=== PATIENT | female | born 1965 | race Two or more races ===

== ENCOUNTER 2018-03-07 06:47 | Day surgery (SDC) | payer BC ==
[~2018-03-07 06:47] MED LIST: Lactated Ringers 1,000 ML IV SCH; Lidocaine 1%/Sod Bicarbonate in NS 8.4% 1 ML Syringe IDERM PRN; Sodium Chloride 0.9% 10 ML Syringe FLUSH PRN
[2018-03-07] MEDS ORDERED: Midazolam 1 MG/ML 2 ML SDV ONE (06:57)
[2018-03-07] MEDS ORDERED: Propofol 200 MG/20 ML SDV ONE ×2 (06:57→08:35)
--- NOTE | 2018-03-07 07:08 | PCM.PREANE ---
Preanesthetic Assessment - Anesthesia/Transfusion/Family Hx Anesthesia History: Prior Anesthesia Without Reaction Family History of Anesthesia Reaction: No - Review of Systems General: No Symptoms, Other (obese, BMI 44) Pulmonary: No Symptoms, Other (had partial lower lobectomy 3 years ago, denies any breathing issues) Cardiovascular: No Symptoms Gastrointestinal: No Symptoms Neurological: No Symptoms Other: Reports: None - Physical Assessment NPO Status Date: 03/06/18 NPO Status Time: 21:00 Pulse: 87 O2 Sat by Pulse Oximetry: 97 Respiratory Rate: 16 Blood Pressure: 161/76 Weight: 110 kg ASA Class: 2 Mental Status: Alert & Oriented x3 Airway Class: Mallampati = 2 Dentition: Reports: Normal Dentition Thyro-Mental Finger Breadths: 3 Mouth Opening Finger Breadths: 3 ROM/Head Extension: Full Lungs: Clear to Auscultation, Normal Respiratory Effort Cardiovascular: Regular Rate, Regular Rhythm - Allergies Allergies/Adverse Reactions: Allergies Allergy/AdvReac Type Severity Reaction Status Date / Time No Known Allergies Allergy Verified 02/24/15 13:14 - Blood Blood Available: No Product(s) Available: None - Anesthesia Plan Pre-Op Medication Ordered: None - Acknowledgements Anesthesia Type Planned: MAC Pt an Appropriate Candidate for the Planned Anesthesia: Yes Alternatives and Risks of Anesthesia Discussed w Pt/Guardian: Yes Pt/Guardian Understands and Agrees with Anesthesia Plan: Yes PreAnesthesia Questionnaire HEENT History: Reports: Impaired Vision, Other (See Below) Other HEENT History: nasal sore, wears glasses Cardiovascular History: Reports: None Other Respiratory History: Left lung nodule from metastatic cancer Other OB/BYN History: Leiomyosarcoma of uterus Musculoskeletal History: Reports: Fibromyalgia, Other (See Below) Other Musculoskeletal History: polyarthralgia, shoulder impingment, supraspinatus tendinitis, trapezius muscle spasm, hip pain, knee pain Neurological History: Reports: None Psychiatric History: Reports: Other (See Below) Other Psychiatric History: fatigue Endocrine/Metabolic History: Reports: Obesity/BMI 30+ Hematologic History: Reports: None Immunologic History: Reports: None Oncologic (Cancer) History: Reports: None Dermatologic History: Reports: None - Past Surgical History Head Surgeries/Procedures: Reports: None HEENT Surgical History: Reports: None Cardiovascular Surgical History: Reports: None Other Respiratory Surgeries/Procedures: small protion of left lung removed due to cancer (October 2014) GI Surgical History: Reports: Bariatric Procedure, Cholecystectomy, Colonoscopy Female Surgical History: Reports: Section, Hysterectomy Other Female Surgeries/Procedures: Leiomyosarcoma---soft tissue cancer of uterus Male Surgical History: Reports: None Endocrine Surgical History: Reports: None Neurological Surgical History: Reports: None Oncologic Surgical History: Reports: None Dermatological Surgical History: Reports: None - SUBSTANCE USE Smoking Status *Q: Never Smoker Recreational Drug Use History: No - HOME MEDS Home Medications: Home Meds Acetaminophen 325 - 650 mg PO Q6H PRN 12/26/14 [History] Multivitamin [Daily Vitamin] 1 each PO DAILY 12/26/14 [History] Omeprazole [Prilosec] 20 mg PO DAILY 12/26/14 [History] Venlafaxine HCl [Venlafaxine ER] 37.5 mg PO DAILY 12/26/14 [History] Cyclobenzaprine HCl 5 - 10 mg PO BEDTIME PRN 03/06/18 [History] Diclofenac Sodium 1 dose TOP BID PRN 03/06/18 [History] - CURRENT (IN HOUSE) MEDS Current Meds: Current Medications Lactated Ringer's (Ringers, Lactated) 1,000 mls @ 125 mls/hr IV ASDIRECTED ISAIAH Stop: 03/07/18 23:00 Lidocaine/Sodium Bicarbonate (Buffered Lidocaine 1% In Ns 8.4%) 0.25 ml IDERM ONETIME PRN PRN Reason: Prior to IV Start Stop: 03/07/18 18:00 Sodium Chloride (Saline Flush) 10 ml FLUSH ASDIRECTED PRN PRN Reason: Keep Vein Open Stop: 03/07/18 18:00 Discontinued Medications Midazolam HCl (Versed 1 Mg/Ml) Confirm Administered Dose 2 mg .ROUTE .STK-MED ONE Stop: 03/07/18 06:58 Propofol (Diprivan 20 Ml) Confirm Administered Dose 400 mg .ROUTE .STK-MED ONE Stop: 03/07/18 06:58
--- NOTE | 2018-03-07 07:38 | PCM.HP ---
H&P History of Present Illness - General Date of Service: 03/07/18 Admit Problem/Dx: Family history of colon cancer in mother requiring screening colonoscopy Source of Information: Patient - History of Present Illness Initial Comments - Free Text/Narative: 52 year old female here for for colon cancer screening due to family history of colon cancer in her mother. Patient's last colonoscopy was 12 years ago. She has had no blood in stool, no bowel habit changes. She has a history of metastatic leiomyosarcoma s/p resection. Abdomen Pain Score (Numeric/FACES): 0 - Related Data Allergies/Adverse Reactions: Allergies Allergy/AdvReac Type Severity Reaction Status Date / Time No Known Allergies Allergy Verified 02/24/15 13:14 Home Medications: Home Meds Acetaminophen 325 - 650 mg PO Q6H PRN 12/26/14 [History] Multivitamin [Daily Vitamin] 1 each PO DAILY 12/26/14 [History] Omeprazole [Prilosec] 20 mg PO DAILY 12/26/14 [History] Venlafaxine HCl [Venlafaxine ER] 37.5 mg PO DAILY 12/26/14 [History] Cyclobenzaprine HCl 5 - 10 mg PO BEDTIME PRN 03/06/18 [History] Diclofenac Sodium 1 dose TOP BID PRN 03/06/18 [History] Past Medical History HEENT History: Reports: Impaired Vision, Other (See Below) Other HEENT History: nasal sore, wears glasses Cardiovascular History: Reports: None Other Respiratory History: Left lung nodule from metastatic cancer Other OB/BYN History: Leiomyosarcoma of uterus Musculoskeletal History: Reports: Fibromyalgia, Other (See Below) Other Musculoskeletal History: polyarthralgia, shoulder impingment, supraspinatus tendinitis, trapezius muscle spasm, hip pain, knee pain Neurological History: Reports: None Psychiatric History: Reports: Other (See Below) Other Psychiatric History: fatigue Endocrine/Metabolic History: Reports: Obesity/BMI 30+ Hematologic History: Reports: None Immunologic History: Reports: None Oncologic (Cancer) History: Reports: None Dermatologic History: Reports: None - Past Surgical History Head Surgeries/Procedures: Reports: None HEENT Surgical History: Reports: None Cardiovascular Surgical History: Reports: None Other Respiratory Surgeries/Procedures: small protion of left lung removed due to cancer (October 2014) GI Surgical History: Reports: Bariatric Procedure, Cholecystectomy, Colonoscopy Female Surgical History: Reports: Section, Hysterectomy Other Female Surgeries/Procedures: Leiomyosarcoma---soft tissue cancer of uterus Male Surgical History: Reports: None Endocrine Surgical History: Reports: None Neurological Surgical History: Reports: None Oncologic Surgical History: Reports: None Dermatological Surgical History: Reports: None Social & Family History - Tobacco Use Smoking Status *Q: Never Smoker - Caffeine Use Caffeine Use: Reports: Coffee, Soda - Recreational Drug Use Recreational Drug Use: No Drug Use in Last 12 Months: No H&P Review of Systems - Review of Systems: Review Of Systems: See Below General: Reports: No Symptoms Pulmonary: Reports: No Symptoms Cardiovascular: Reports: No Symptoms Gastrointestinal: Reports: No Symptoms Exam - Exam Exam: See Below - Vital Signs Vital Signs: Last Vital Signs Temp 36.5 C 03/07/18 07:00 Pulse 87 03/07/18 07:14 Resp 16 03/07/18 07:14 BP 161/76 H 03/07/18 07:14 Pulse Ox 97 03/07/18 07:14 Weight: 110 kg - Exam General: Alert, Oriented Lungs: Clear to Auscultation, Normal Respiratory Effort Cardiovascular: Regular Rate, Regular Rhythm GI/Abdominal Exam: Normal Bowel Sounds, Soft, Non-Tender - Problem List (1) Family history of colon cancer requiring screening colonoscopy SNOMED Code(s): 491509521 ICD Code: Z80.0 - FAMILY HISTORY OF MALIGNANT NEOPLASM OF DIGESTIVE ORGANS Status: Acute Current Visit: Yes Problem List Initiated/Reviewed/Updated: Yes Orders Last 24hrs: Active Orders 24 hr Category Date Time Status Peripheral IV Care [RC] . DIRECTED Care 03/07/18 00:01 Active Verify Patient Consent Obtain [RC] ASDIRECTED Care 03/07/18 00:01 Active Lactated Ringers [Ringers, Lactated] 1,000 ml Med 03/07/18 00:01 Active IV ASDIRECTED Lidocaine 1%/Sod Bicarbonate [Buffered Lidocaine 1% in Med 03/07/18 00:01 Active NS 8.4%] 0.25 ml IDERM ONETIME PRN Sodium Chloride 0.9% [Saline Flush] Med 03/07/18 00:01 Active 10 ml FLUSH ASDIRECTED PRN Medication Administration Instruction [OM.PC] Routine Oth 03/07/18 00:01 Ordered Peripheral IV Insertion Adult [OM.PC] Routine Oth 03/07/18 00:01 Ordered Medication Orders Lactated Ringer's (Ringers, Lactated) 1,000 mls @ 125 mls/hr IV ASDIRECTED ISIAAH Stop: 03/07/18 23:00 Last Admin: 03/07/18 07:10 Dose: 125 mls/hr Lidocaine/Sodium Bicarbonate (Buffered Lidocaine 1% In Ns 8.4%) 0.25 ml IDERM ONETIME PRN PRN Reason: Prior to IV Start Stop: 03/07/18 18:00 Last Admin: 03/07/18 07:10 Dose: 0.25 ml Sodium Chloride (Saline Flush) 10 ml FLUSH ASDIRECTED PRN PRN Reason: Keep Vein Open Stop: 03/07/18 18:00 Assessment/Plan Comment:: Benefits/risks of colonoscopy discussed, recommend proceed with high risk screening colonoscopy.
--- NOTE | 2018-03-07 08:03 | PCM.OPNOTE ---
- General Post-Op/Procedure Note Date of Surgery/Procedure: 03/07/18 Operative Procedure(s): High risk screening colonoscopy Findings: Normal colonoscopy Pre Op Diagnosis: Family history of colon cancer in mother requiring screening colonoscopy Post-Op Diagnosis: Normal colonoscopy Anesthesia Technique: MAC Primary Surgeon: Howard Dominguez EBL in mLs: 0 Complications: None Condition: Good Free Text/Narrative:: After the patient gave verbal and written consent she was placed on blood pressure and pulse ox monitoring. She was given iv sedation which she tolerated well. The olympus colonoscope wsa inserted per rectum and advanced to the cecum without difficulty. THe ileocecal valve and appendiceal orfice were imaged documenting cecal intubation. The ileocecal valve and appendiceal orfice were imaged documenting cecal intubation. The scope was slowly withdrawn. The prep was excellent, the views were excellent. The scope was then retroflexed in the rectum and the details are above. Next colonoscopy recommended for screening in 5 years.
--- NOTE | 2018-03-07 08:04 | PCM48HPAN ---
Post Anesthesia Note - EVALUATION WITHIN 48HRS OF ANESTHETIC Vital Signs in Normal Range: Yes Patient Participated in Evaluation: Yes Respiratory Function Stable: Yes Airway Patent: Yes Cardiovascular Function Stable: Yes Hydration Status Stable: Yes Pain Control Satisfactory: Yes Nausea and Vomiting Control Satisfactory: Yes Mental Status Recovered: Yes Pulse Rate: 71 SaO2: 98 Resp Rate: 16 Temperature: 36 C Blood Pressure: 113/67
[2018-03-07 08:05] VITALS: BP 113/67
== END 2018-03-07 08:33 | disposition home or self-care (01) ==
LOC: JD.SDS 06:47
PROVIDERS: ATTEND Family Medicine
DX: Z12.11 Encounter for screening for malignant neoplasm of colon (principal); M79.7 Fibromyalgia; E66.9 Obesity, unspecified; Z68.41 Body mass index [BMI] 40.0-44.9, adult; Z79.899 Other long term (current) drug therapy; Z80.0 Family history of malignant neoplasm of digestive organs
CPT/HCPCS: 45378; J2250; J2704; J7120

== ENCOUNTER 2018-08-13 10:02 | Day surgery (SDC) | payer BC ==
[~2018-08-13 10:02] MED LIST changes: +EPINEPHrine 1 MG/ML 30 ML MDV SCH; +EPINEPHrine 1 MG/ML SDV ONE; +Ketorolac 30 MG/ML SDV ONE; +Lidocaine 1% 4 ML ONE; +Midazolam 1 MG/ML 2 ML SDV ONE; +Ondansetron 4 MG/2 ML SDV ONE; +Propofol 200 MG/20 ML SDV ONE; +Ropivacaine 0.5% 5 MG/ML 30 ML SDV ONE; +ceFAZolin 1 GM Vial ONE; +fentaNYL 100 MCG/2 ML SDV ONE; +fentaNYL 250 MCG/5 ML SDV ONE
--- NOTE | 2018-08-13 11:06 | PCM.PREANE ---
Preanesthetic Assessment - Anesthesia/Transfusion/Family Hx Anesthesia History: Prior Anesthesia Without Reaction Family History of Anesthesia Reaction: No Transfusion History: No Prior Transfusion(s) - Review of Systems General: No Symptoms Pulmonary: No Symptoms, Other (denies any issues) Cardiovascular: No Symptoms, Other (EKG, SR @71) Gastrointestinal: No Symptoms, Other (denies any issues) Neurological: No Symptoms Other: Reports: None - Physical Assessment NPO Status Date: 08/12/18 NPO Status Time: 21:30 Pulse: 77 O2 Sat by Pulse Oximetry: 97 Respiratory Rate: 16 Blood Pressure: 148/79 Vital Signs: Last Vital Signs Temp 36.5 C 08/13/18 10:10 Pulse 77 08/13/18 10:10 Resp 16 08/13/18 10:10 BP 148/79 H 08/13/18 10:10 Pulse Ox 97 08/13/18 10:10 Height: 1.6 m Weight: 106.141 kg ASA Class: 3 Mental Status: Alert & Oriented x3 Airway Class: Mallampati = 2 Dentition: Reports: Normal Dentition Thyro-Mental Finger Breadths: 3 Mouth Opening Finger Breadths: 3 ROM/Head Extension: Full Lungs: Clear to Auscultation, Normal Respiratory Effort Cardiovascular: Regular Rate, Regular Rhythm - Lab Values: Laboratory Last Values MRSA (PCR) Negative 08/12/18 10:40 - Allergies Allergies/Adverse Reactions: Allergies Allergy/AdvReac Type Severity Reaction Status Date / Time adhesive Allergy Rash Verified 08/12/18 12:22 amoxicillin [From Augmentin] AdvReac Nausea and Verified 08/12/18 12:57 Vomiting clavulanic acid AdvReac Nausea and Verified 08/12/18 12:57 [From Augmentin] Vomiting - Blood Blood Available: No Product(s) Available: None - Acknowledgements Anesthesia Type Planned: General Anesthesia Pt an Appropriate Candidate for the Planned Anesthesia: Yes Alternatives and Risks of Anesthesia Discussed w Pt/Guardian: Yes Pt/Guardian Understands and Agrees with Anesthesia Plan: Yes PreAnesthesia Questionnaire HEENT History: Reports: Impaired Vision, Other (See Below) Other HEENT History: nasal sore, wears glasses, post nasal drip Cardiovascular History: Reports: None Other Respiratory History: Left lung nodule from metastatic cancer Gastrointestinal History: Reports: GERD Genitourinary History: Reports: None Other OB/BYN History: Leiomyosarcoma of uterus Musculoskeletal History: Reports: Fibromyalgia, Other (See Below) Other Musculoskeletal History: polyarthralgia, shoulder impingment, supraspinatus tendinitis, trapezius muscle spasm, hip pain, knee pain, bilateral rotator cuff tears Neurological History: Reports: None Psychiatric History: Reports: Other (See Below) Other Psychiatric History: fatigue Endocrine/Metabolic History: Reports: Obesity/BMI 30+ Hematologic History: Reports: None Immunologic History: Reports: None Oncologic (Cancer) History: Reports: Lung, Other (See Below) Other Oncologic History: uterine Dermatologic History: Reports: None - Past Surgical History Head Surgeries/Procedures: Reports: None HEENT Surgical History: Reports: None Cardiovascular Surgical History: Reports: None Other Respiratory Surgeries/Procedures: small protion of left lung removed due to cancer (October 2014) GI Surgical History: Reports: Bariatric Procedure, Cholecystectomy, Colonoscopy , Other (See Below) Other GI Surgeries/Procedures: gastric surgery Female Surgical History: Reports: Section, Hysterectomy Other Female Surgeries/Procedures: Leiomyosarcoma---soft tissue cancer of uterus Male Surgical History: Reports: None Endocrine Surgical History: Reports: None Neurological Surgical History: Reports: None Oncologic Surgical History: Reports: None Dermatological Surgical History: Reports: None - SUBSTANCE USE Smoking Status *Q: Never Smoker Recreational Drug Use History: No - HOME MEDS Home Medications: Home Meds Multivitamin [Daily Vitamin] 1 each PO DAILY 12/26/14 [History] Acetaminophen [Tylenol] 650 mg PO Q4H PRN 08/12/18 [History] Lidocaine [Lidocare] 1 unit TOP Q12H PRN 08/12/18 [History] Venlafaxine HCl [Venlafaxine ER] 75 mg PO DAILY 08/12/18 [History] Acetaminophen/HYDROcodone [[place] 325-5 MG] 1 - 2 tab PO Q6H PRN #40 tablet 08/13 [Rx] Cyclobenzaprine [Flexeril] 10 mg PO Q12H PRN #20 tab 08/13/18 [Rx] - CURRENT (IN HOUSE) MEDS Current Meds: Current Medications Epinephrine HCl (Adrenalin) 3 mg .XX ONETIME ISAIAH Stop: 08/13/18 15:00 Lactated Ringer's (Ringers, Lactated) 1,000 mls @ 125 mls/hr IV ASDIRECTED ISAIAH Stop: 08/13/18 23:00 Lidocaine/Sodium Bicarbonate (Buffered Lidocaine 1% In Ns 8.4%) 0.25 ml IDERM ONETIME PRN PRN Reason: Prior to IV Start Stop: 08/13/18 18:00 Sodium Chloride (Saline Flush) 10 ml FLUSH ASDIRECTED PRN PRN Reason: Keep Vein Open Stop: 08/13/18 18:00 Discontinued Medications Cefazolin Sodium (Ancef) Confirm Administered Dose 2 gm .ROUTE .STK-MED ONE Stop: 08/13/18 10:00 Epinephrine HCl (Adrenalin) Confirm Administered Dose 1 mg .ROUTE .STK-MED ONE Stop: 08/13/18 07:34 Fentanyl (Sublimaze) Confirm Administered Dose 100 mcg .ROUTE .STK-MED ONE Stop: 08/13/18 10:00 Fentanyl (Sublimaze) Confirm Administered Dose 250 mcg .ROUTE .STK-MED ONE Stop: 08/13/18 10:00 Lidocaine HCl (Xylocaine-Mpf 1%) Confirm Administered Dose 4 mls @ as directed .ROUTE .STK-MED ONE Stop: 08/13/18 07:33 Ketorolac Tromethamine (Toradol) Confirm Administered Dose 30 mg .ROUTE .STK- MED ONE Stop: 08/13/18 10:00 Midazolam HCl (Versed 1 Mg/Ml) Confirm Administered Dose 2 mg .ROUTE .STK-MED ONE Stop: 08/13/18 10:00 Ondansetron HCl (Zofran) Confirm Administered Dose 4 mg .ROUTE .STK-MED ONE Stop: 08/13/18 10:00 Propofol (Diprivan 20 Ml) Confirm Administered Dose 200 mg .ROUTE .STK-MED ONE Stop: 08/13/18 10:00 Ropivacaine (Naropin 0.5%) Confirm Administered Dose 30 ml .ROUTE .STK-MED ONE Stop: 08/13/18 07:34
[2018-08-13] MEDS ORDERED: Triamcinolone Acetonide 40 MG/ML 1 ML MDV ONE (11:25)
[2018-08-13] MEDS ORDERED: Bupivacaine 0.25% 10 ML SDV ONE (11:26)
--- NOTE | 2018-08-13 11:46 | PCM.SN ---
- Free Text/Narrative Note: Interscalene nerve block note Date: 08/13/2018 Start: 1115 Time Out: 1114 Stop: 1125 Procedure: Left interscalene block under US guidance for postoperative pain control Patient chart reviewed, risk/benefits discussed with patient, consent obtained. Patient positioned supine, monitors/alarms on, oxygen placed via nasal cannula at 2 LPM. Left shoulder prepped with chloraprep x2. Sterile drapes placed with aseptic technique. Under US guidance, right subclavian artery visualized along with the brachial plexus. Plexus followed cephalad up to C6 cricoid level, and area localized with 1mls of 1% lidocaine. 22gauge 2 inch stimiplex needle inserted under US and guided to brachial plexus C5-C6 trunks with 0.40mV with stimulation of biceps noted. Stimulation abolished at 0.3mVs. 1ml of Normal Saline injected with loss of stimulation. Incremental injection of 5mls with negative aspiration prior to each injection of 0.5% ropivacaine with 1:200,000 epinephrine. Total volume=30mls. Refer to nurses notes for vital signs and sedation administered. Jessa Harley [employer] SALES REPRESENTATIVE
[2018-08-13] MEDS ORDERED: Midazolam 1 MG/ML 2 ML SDV ONE (12:09)
[2018-08-13] MEDS ORDERED: Propofol 200 MG/20 ML SDV ONE (13:03)
[2018-08-13] MEDS ORDERED: Lactated Ringers 1,000 ML ONE (13:18)
[2018-08-13] MEDS ORDERED: Ondansetron 4 MG/2 ML SDV IVPUSH PRN (13:45)
[2018-08-13] MEDS ORDERED: diphenhydrAMINE 50 MG/ML SDV IVPUSH PRN (13:45)
[2018-08-13] MEDS ORDERED: fentaNYL 100 MCG/2 ML SDV IVPUSH PRN (13:45)
[2018-08-13] MEDS ORDERED: HYDROmorphone 0.5 MG/0.5 ML Syringe IVPUSH PRN (13:45)
--- NOTE | 2018-08-13 13:45 | PCM.POSTAN ---
POST ANESTHESIA ASSESSMENT - MENTAL STATUS Mental Status: Alert, Oriented - VITAL SIGNS Pulse Rate: 85 SaO2: 100 Resp Rate: 11 Blood Pressure: 124/67 Temperature: 36.3 C - RESPIRATORY Respiratory Status: Respiratory Rate WNL, Airway Patent, O2 Saturation Stable, Supplemental Oxygen - CARDIOVASCULAR CV Status: Pulse Rate WNL, Blood Pressure Stable - GASTROINTESTINAL GI Status: No Symptoms - PAIN Pain Score: 0 - POST OP HYDRATION Hydration Status: Adequate & Stable
--- NOTE | 2018-08-13 14:02 | PCM48HPAN ---
Post Anesthesia Note - EVALUATION WITHIN 48HRS OF ANESTHETIC Vital Signs in Normal Range: Yes Patient Participated in Evaluation: Yes Respiratory Function Stable: Yes Airway Patent: Yes Cardiovascular Function Stable: Yes Hydration Status Stable: Yes Pain Control Satisfactory: Yes Nausea and Vomiting Control Satisfactory: Yes Mental Status Recovered: Yes Pulse Rate: 85 SaO2: 99 Resp Rate: 11 Temperature: 36.3 C Blood Pressure: 124/67
[2018-08-13 15:32] VITALS: BP 113/57
--- NOTE | 2018-08-18 07:18 | PCM.OPNOTE ---
- General Post-Op/Procedure Note Date of Surgery/Procedure: 08/13/18 Operative Procedure(s): left shoulder video arthroscopy with rotator cuff repair , subacromial decompression, extensive debridement, and biceps tenodesis with right shoulder corticosteroid injection Pre Op Diagnosis: bilateral shoulder rotator cuff tear Post-Op Diagnosis: Same Anesthesia Technique: General ET Tube, Regional Block Primary Surgeon: Boo Stinson Anesthesia Provider: Nadiya Arce Clerical Adjudicator: Katia Davis EBEleanor in mLs: 5 Complications: None Condition: Good
--- NOTE | 2018-08-18 08:47 | OR ---
DATE OF OPERATION: 08/13/2018 SURGEON: Boo Stinson MD OPERATION PERFORMED: Left shoulder video arthroscopy with rotator cuff repair, subacromial decompression, extensive debridement, and biceps tenodesis with right shoulder corticosteroid injection. PREOPERATIVE DIAGNOSIS: Bilateral shoulder rotator cuff tear. POSTOPERATIVE DIAGNOSIS: Bilateral shoulder rotator cuff tear. ANESTHESIA: General endotracheal intubation with regional interscalene block. ANESTHESIA PROVIDER: Nadiya Arce. EVALUATION MANAGER: Katia Davis PA-C. ESTIMATED BLOOD LOSS: Less than 5 mL. COMPLICATIONS: None. CONDITION: Stable. DESCRIPTION OF PROCEDURE: The patient was identified in the preoperative holding area. Proper site was marked and identified by the surgeon. The patient was taken back to the operating theater, where after adequate anesthesia, the patient was placed in the lazy right lateral decubitus position. Wedge was placed posteriorly. All bony prominences were well padded. The patient was secured to the table. At this time, left upper extremity was sterilely prepped and draped in the usual sterile fashion. OR time-out was performed. The patient received 2 g of IV Ancef. 12 pounds of traction was applied to the left upper extremity. Standard posterior incision was made. Scope trocar was introduced to the glenohumeral joint. At this time, with the use of a spinal needle, anterior portal was created with an outside-in technique. At this time, the patient was noted to have significant fraying with erythema at the biceps. There was no chondromalacia noted. She was noted to have full-thickness tear at the anterior portion of the supraspinatus. Otherwise, there was no other pathology noted. At this time, it was decided that the patient would have a biceps tenodesis secondary to the significant fraying and erythema. At this time, a #2 FiberWire was passed through the biceps tendon near its insertion with the spinal needle. Once this was completed, a tenotomy was then performed for tenodesis in the rotator interval for soft tissue tenodesis. At this time, a debridement was done of the superior portion of the labrum. Once this was completed, attention was turned to the subacromial space. The patient was noted to have significant bursitis and an extensive debridement was done to be able to find the anterior supraspinatus tear, which was identified. A good bony bleeding bed was created with resector. One 4.75 mm Arthrex SwiveLock anchor was placed medially. Two limbs of FiberWire and 2 limbs of FiberTape were then placed across the tear and then the 2 limbs of FiberWire were then tied for medial row repair, then all 4 limbs were brought out laterally. Another 4.75 mm Arthrex SwiveLock anchor was brought out laterally and all 4 limbs were tightened and was found to have good adequate jain of the anterior portion of the supraspinatus with watertight repair after the lateral anchor was placed. All limbs of suture were then cut. The anterior suture limbs for the biceps tenodesis were then identified in the rotator interval and then were tied for the biceps tenodesis and these suture limbs were then cut. The patient was noted to have a significant type 2/3 acromion, and so at this time, a subacromial decompression was then completed back to a smooth border with the posterior rim. Once this was completed, excess saline was drained from the shoulder. 3-0 nylon was used for closure of the portals. The patient was placed in a sterile soft dressing and a pillow sling. After this was completed, under sterile technique, 2 mL of 40 mg of Kenalog and 4 mL of 0.25% Marcaine were injected to the right subacromial space. The patient tolerated well and will follow up in 1 week's time. NIDIA /[id number]
== END 2018-08-13 15:20 | disposition home or self-care (01) ==
LOC: JD.SDS 10:02
PROVIDERS: ATTEND Orthopaedic Surgery
DX: M75.122 Complete rotator cuff tear or rupture of left shoulder, not specified as traumatic (principal); M75.52 Bursitis of left shoulder; M75.101 Unspecified rotator cuff tear or rupture of right shoulder, not specified as traumatic; E66.01 Morbid (severe) obesity due to excess calories; Z98.84 Bariatric surgery status; K21.9 Gastro-esophageal reflux disease without esophagitis; Z87.891 Personal history of nicotine dependence; Z79.899 Other long term (current) drug therapy; Z88.1 Allergy status to other antibiotic agents
CPT/HCPCS: 20610; 29823; 29826; 29827; 29828; 64415; 87641; C1713; J0171; J0690; J1885; J2001; J2250; J2405; J2704; J2795; J3010; J3301; J3490; J7120; 01630

== ENCOUNTER 2018-11-26 08:13 | Day surgery (SDC) | payer BC ==
[~2018-11-26 08:13] MED LIST changes: -EPINEPHrine 1 MG/ML 30 ML MDV SCH; -Ketorolac 30 MG/ML SDV ONE; +Lidocaine 1% 2 ML ONE; +Rocuronium 50 MG/5 ML Vial ONE; -ceFAZolin 1 GM Vial ONE; -fentaNYL 250 MCG/5 ML SDV ONE
[2018-11-26] MEDS ORDERED: Bupivacaine 0.25% 30 ML SDV ONE (08:37)
--- NOTE | 2018-11-26 08:46 | PCM.PREANE ---
Preanesthetic Assessment - Anesthesia/Transfusion/Family Hx Anesthesia History: Prior Anesthesia Without Reaction Family History of Anesthesia Reaction: No Transfusion History: No Prior Transfusion(s) - Review of Systems General: No Symptoms Pulmonary: No Symptoms Cardiovascular: No Symptoms Gastrointestinal: No Symptoms Neurological: No Symptoms Other: Reports: None - Physical Assessment NPO Status Date: 11/25/18 NPO Status Time: 00:00 Pulse: 82 O2 Sat by Pulse Oximetry: 97 Respiratory Rate: 16 Blood Pressure: 140/73 Temperature: 36.2 C Height: 1.6 m Weight: 107.7 kg ASA Class: 2 Mental Status: Alert & Oriented x3 Airway Class: Mallampati = 1 Dentition: Reports: Kempner(s) Thyro-Mental Finger Breadths: 3 Mouth Opening Finger Breadths: 3 ROM/Head Extension: Full Lungs: Clear to Auscultation, Normal Respiratory Effort Cardiovascular: Regular Rate, Regular Rhythm - Lab Values: Laboratory Last Values MRSA (PCR) Negative 11/19/18 11:39 - Imaging/EKG Impressions: EKG on chart SR rate 71 - Allergies Allergies/Adverse Reactions: Allergies Allergy/AdvReac Type Severity Reaction Status Date / Time adhesive Allergy Rash Verified 11/25/18 11:55 amoxicillin [From Augmentin] AdvReac Nausea and Verified 11/25/18 11:55 Vomiting clavulanic acid AdvReac Nausea and Verified 11/25/18 11:55 [From Augmentin] Vomiting - Blood Blood Available: No Product(s) Available: None - Anesthesia Plan Pre-Op Medication Ordered: None - Acknowledgements Anesthesia Type Planned: General Anesthesia, Regional Block (right interscaline block for post-op pain coverage) Pt an Appropriate Candidate for the Planned Anesthesia: Yes Alternatives and Risks of Anesthesia Discussed w Pt/Guardian: Yes Pt/Guardian Understands and Agrees with Anesthesia Plan: Yes PreAnesthesia Questionnaire HEENT History: Reports: Impaired Vision, Other (See Below) Other HEENT History: nasal sore, wears glasses Cardiovascular History: Reports: None Other Respiratory History: Left lung nodule from metastatic cancer Gastrointestinal History: Reports: GERD Genitourinary History: Reports: None Other OB/BYN History: Leiomyosarcoma of uterus Musculoskeletal History: Reports: Fibromyalgia, Other (See Below) Other Musculoskeletal History: polyarthralgia, shoulder impingment, supraspinatus tendinitis, trapezius muscle spasm, hip pain, knee pain Neurological History: Reports: None Psychiatric History: Reports: Other (See Below) Other Psychiatric History: fatigue, claustrophobia Endocrine/Metabolic History: Reports: Obesity/BMI 30+ Hematologic History: Reports: None Immunologic History: Reports: None Oncologic (Cancer) History: Reports: None Other Oncologic History: uterine Dermatologic History: Reports: None - Past Surgical History Head Surgeries/Procedures: Reports: None HEENT Surgical History: Reports: None Cardiovascular Surgical History: Reports: None Respiratory Surgical History: Reports: Other (See Below) Other Respiratory Surgeries/Procedures: small protion of left lung removed due to cancer (October 2014) GI Surgical History: Reports: Bariatric Procedure, Cholecystectomy, Colonoscopy Other GI Surgeries/Procedures: gastric surgery Female Surgical History: Reports: Section, Hysterectomy Other Female Surgeries/Procedures: Leiomyosarcoma---soft tissue cancer of uterus Male Surgical History: Reports: None Endocrine Surgical History: Reports: None Neurological Surgical History: Reports: None Musculoskeletal Surgical History: Reports: Shoulder Surgery Oncologic Surgical History: Reports: None Dermatological Surgical History: Reports: None - SUBSTANCE USE Smoking Status *Q: Never Smoker Tobacco Use Within Last Twelve Months: No Second Hand Smoke Exposure: No Days Per Week of Alcohol Use: 1 Number of Drinks Per Day: 1 Total Drinks Per Week: 1 Recreational Drug Use History: No - HOME MEDS Home Medications: Home Meds Multivitamin [Daily Vitamin] 1 each PO DAILY 12/26/14 [History] Acetaminophen [Tylenol] 650 mg PO Q4H PRN 08/12/18 [History] Lidocaine [Lidocare] 1 unit TOP Q12H PRN 08/12/18 [History] Venlafaxine HCl [Venlafaxine ER] 75 mg PO DAILY 08/12/18 [History] Diclofenac Sodium 1 dose TOP TID PRN 11/25/18 [History] Acetaminophen/HYDROcodone [[place] 325-5 MG] 1 - 2 tab PO Q6H PRN #40 tablet 11/26 [Rx] Cyclobenzaprine [Flexeril] 10 mg PO Q12H PRN #30 tab 11/26/18 [Rx] - CURRENT (IN HOUSE) MEDS Current Meds: Current Medications Epinephrine HCl (Adrenalin) 3 mg .XX ONETIME ISAIAH Stop: 11/26/18 14:00 Lactated Ringer's (Ringers, Lactated) 1,000 mls @ 125 mls/hr IV ASDIRECTED ISAIAH Stop: 11/26/18 23:00 Lidocaine/Sodium Bicarbonate (Buffered Lidocaine 1% In Ns 8.4%) 0.25 ml IDERM ONETIME PRN PRN Reason: Prior to IV Start Stop: 11/26/18 18:00 Sodium Chloride (Saline Flush) 10 ml FLUSH ASDIRECTED PRN PRN Reason: Keep Vein Open Stop: 11/26/18 18:00 Discontinued Medications Epinephrine HCl (Adrenalin) Confirm Administered Dose 1 mg .ROUTE .STK-MED ONE Stop: 11/26/18 07:44 Fentanyl (Sublimaze) Confirm Administered Dose 100 mcg .ROUTE .STK-MED ONE Stop: 11/26/18 07:30 Lidocaine HCl (Xylocaine-Mpf 1%) Confirm Administered Dose 4 mls @ as directed .ROUTE .STK-MED ONE Stop: 11/26/18 07:30 Lidocaine HCl (Xylocaine-Mpf 1%) Confirm Administered Dose 2 mls @ as directed .ROUTE .STK-MED ONE Stop: 11/26/18 07:43 Midazolam HCl (Versed 1 Mg/Ml) Confirm Administered Dose 2 mg .ROUTE .STK-MED ONE Stop: 11/26/18 07:30 Ondansetron HCl (Zofran) Confirm Administered Dose 4 mg .ROUTE .STK-MED ONE Stop: 11/26/18 07:29 Propofol (Diprivan 20 Ml) Confirm Administered Dose 200 mg .ROUTE .STK-MED ONE Stop: 11/26/18 07:29 Rocuronium [place] (Zemuron) Confirm Administered Dose 50 mg .ROUTE .STK-MED ONE Stop: 11/26/18 07:29 Ropivacaine (Naropin 0.5%) Confirm Administered Dose 30 ml .ROUTE .STK-MED ONE Stop: 11/26/18 07:45
--- NOTE | 2018-11-26 09:34 | PCM.SN ---
- Free Text/Narrative Note: Anesthesia Note: (Right Interscalene Block Note) Date: 11/26/2018 Time Out: 857 Start: 857 Stop: 914 Surgical Procedure: Right Shoulder video arthroscopy with rotator cuff repair Diagnosis Right shoulder rotator cuff tear Current Procedure: Right interscalene block under US guidance for postoperative pain control requested by Dr. Stinson. Patient chart reviewed, risk/benefits discussed with patient, consent obtained. Patient positioned supine, monitors/alarms on, oxygen placed via nasal cannula at 2 LPM. IV sedation administered: Versed 2mg IV, Fentanyl 100 mcg IV given in prior to block placement. Right shoulder prepped with two chloropreps. Sterile drapes placed with aseptic technique noted. Under US guidance, right subclavian artery visualized along with the right brachial plexus. Plexus followed up to C6 cricoid level, and area localized with 2mls of 1% lidocaine. 22gauge 2 inch stimiplex needle advanced under US with 0.8mV with stimulation of biceps noted. Good stimulation noted with decreased voltage and absent at 0.4mVs. 1ml of Normal Saline injected with loss of stimulation noted to confirm needle not placed intraneurally. Incremental dosing of 5mls with negative aspiration noted prior to each injection of 0.5% ropivacaine with 1:200,000 epinephrine. Total volume=30mls. Please refer to nurses noted for vital signs. Christiano Noriega CRNA
[2018-11-26] MEDS ORDERED: fentaNYL 100 MCG/2 ML SDV ONE ×2 (10:23→11:43)
[2018-11-26] MEDS: EPINEPHrine 1 MG/ML 30 ML MDV SCH ×2 (10:55→12:05)
[2018-11-26] MEDS ORDERED: Lactated Ringers 1,000 ML ONE (11:00)
[2018-11-26] MEDS ORDERED: Ketorolac 30 MG/ML SDV ONE (11:42)
[2018-11-26] MEDS ORDERED: HYDROmorphone 0.5 MG/0.5 ML Syringe IVPUSH PRN (11:51)
[2018-11-26] MEDS ORDERED: fentaNYL 100 MCG/2 ML SDV IVPUSH PRN (11:51)
--- NOTE | 2018-11-26 11:53 | PCM.POSTAN ---
POST ANESTHESIA ASSESSMENT - MENTAL STATUS Mental Status: Alert, Oriented - VITAL SIGNS Pulse Rate: 85 SaO2: 98 Resp Rate: 10 Blood Pressure: 87/56 Temperature: 36.3 C - RESPIRATORY Respiratory Status: Respiratory Rate WNL, Airway Patent, O2 Saturation Stable, Supplemental Oxygen - CARDIOVASCULAR CV Status: Pulse Rate WNL, Blood Pressure Stable - GASTROINTESTINAL GI Status: No Symptoms - PAIN Pain Score: 0 - POST OP HYDRATION Hydration Status: Adequate & Stable - OBSERVATIONS Free Text/Narrative:: no anesthesia complications noted
[2018-11-26] MEDS ORDERED: Acetaminophen/HYDROcodone 325-5 MG Tab PO PRN (12:18)
[2018-11-26 13:42] VITALS: BP 117/59
--- NOTE | 2018-11-27 08:33 | PCM.OPNOTE ---
- General Post-Op/Procedure Note Date of Surgery/Procedure: 11/26/18 Operative Procedure(s): right shoulder video arthroscopy with rotator cuff repair, subacromial decompression and extensive debridement Pre Op Diagnosis: right shoulder rotator cuff tear with impingement and biceps tendon ruptutre Post-Op Diagnosis: Same Anesthesia Technique: General ET Tube, Regional Block Primary Surgeon: Boo Stinson Anesthesia Provider: Christiano Noriega [employer] Technician: Katia Davis EBL in mLs: 5 Complications: None Condition: Good
--- NOTE | 2018-11-27 11:45 | OR ---
DATE OF OPERATION: 11/26/2018 SURGEON: Boo Stinson MD OPERATION PERFORMED: Right shoulder video arthroscopy, rotator cuff repair, subacromial decompression, and extensive debridement. PREOPERATIVE DIAGNOSIS: Right shoulder rotator cuff tear with impingement and biceps tendon rupture. POSTOPERATIVE DIAGNOSIS: Right shoulder rotator cuff tear with impingement and biceps tendon rupture. ANESTHESIA: General endotracheal intubation with regional interscalene block. ANESTHESIA PROVIDER: Altaf Eid. SPA ASSOCIATE: Katia Davis PA-C. ESTIMATED BLOOD LOSS: Less than 5 mL. COMPLICATIONS: None. CONDITION: Stable. DESCRIPTION OF PROCEDURE: The patient was identified in the preop holding area. Proper site was marked and identified by the surgeon. The patient was taken back to the operating theater, where after adequate anesthesia, the patient was placed in a lazy left lateral decubitus position. Wedge was placed posteriorly. The patient was secured to the table. Right upper extremity was sterilely prepped and draped in the usual sterile fashion. OR time-out was performed. The patient received 2 g of IV Ancef. 12 pounds of traction was applied to the right upper extremity. At this time, posterior incision was made. Scope trocar was introduced to the glenohumeral joint. At this time, it was visibly noticeable that the patient had an anterior supraspinatus tear as well as the patient had a rupture of the proximal biceps tendon. The patient's subscapularis tendon was intact. At this time, with the use of a spinal needle, an anterior portal was created and extensive debridement of the superior labrum as well as remaining biceps was done as well as any synovitis in the bicipital groove region. Once this was completed, there was no signs of chondromalacia, and attention was turned to the subacromial space. A lateral portal was then created in subacromial space and an extensive debridement of bursitis and synovitis was done in the subacromial space. The anterior portion of the supraspinatus tear was identified and a good bony bleeding bed was then created using a full radius resector. The patient was also noted to have type 2 acromion. One 4.75 mm double loaded Arthrex SwiveLock anchor with FiberTape was then placed on the medial portion of the footprint for a double row repair. Two limbs of FiberTape as well as 4 limbs of FiberWire were then passed. The 4 limbs of FiberWire were then tied and 1 limb from each of those was cut and then another lateral anchor 4.75 mm Arthrex SwiveLock anchor was placed laterally. The previous medial sutures were brought through and then tightened and it showed adequate watertight repair of the previous full-thickness rotator cuff tear. At this time, a subacromial decompression was completed with an acromioplasty with the 4-0 full-radius makenna. This was brought back to a smooth border with the posterior rim. Once this was completed, rotator cuff was intact. Excess saline was drained from the shoulder. 3-0 nylon sutures were used for closure of the skin. The patient had sterile soft dressing applied and a pillow sling, and sent to PACU in stable condition. NIDIA /[id number]
== END 2018-11-26 13:38 | disposition home or self-care (01) ==
LOC: JD.SDS 08:13
PROVIDERS: ATTEND Orthopaedic Surgery
DX: M75.101 Unspecified rotator cuff tear or rupture of right shoulder, not specified as traumatic (principal); M75.41 Impingement syndrome of right shoulder; M66.821 Spontaneous rupture of other tendons, right upper arm; G89.18 Other acute postprocedural pain; Z88.1 Allergy status to other antibiotic agents; Z79.899 Other long term (current) drug therapy; Z87.891 Personal history of nicotine dependence; E66.9 Obesity, unspecified; Z68.41 Body mass index [BMI] 40.0-44.9, adult
CPT/HCPCS: 87641; A9270-GY; C1713; J0171; J1885; J2001; J2250; J2405; J2704; J2795; J3010; J3490; J7120

== ENCOUNTER 2019-07-16 06:13 | Day surgery (SDC) | payer BC ==
[~2019-07-16 06:13] MED LIST changes: -EPINEPHrine 1 MG/ML SDV ONE; -Lidocaine 1% 2 ML ONE; -Lidocaine 1% 4 ML ONE; -Midazolam 1 MG/ML 2 ML SDV ONE; -Ondansetron 4 MG/2 ML SDV ONE; -Propofol 200 MG/20 ML SDV ONE; -Rocuronium 50 MG/5 ML Vial ONE; -Ropivacaine 0.5% 5 MG/ML 30 ML SDV ONE; -fentaNYL 100 MCG/2 ML SDV ONE
[2019-07-16] MEDS ORDERED: Propofol 200 MG/20 ML SDV ONE (06:30)
[2019-07-16] MEDS ORDERED: Midazolam 1 MG/ML 2 ML SDV ONE (06:30)
[2019-07-16] MEDS ORDERED: fentaNYL 100 MCG/2 ML SDV ONE (06:31)
[2019-07-16] MEDS ORDERED: ceFAZolin 1 GM Vial ONE (06:33)
[2019-07-16] MEDS ORDERED: Lidocaine 1% 2 ML ONE (06:39)
[2019-07-16] MEDS ORDERED: Ropivacaine 0.5% 5 MG/ML 30 ML SDV ONE (06:42)
--- NOTE | 2019-07-16 07:02 | PCM.PREANE ---
Preanesthetic Assessment - Anesthesia/Transfusion/Family Hx Anesthesia History: Prior Anesthesia Without Reaction Transfusion History: No Prior Transfusion(s) Intubation History: Unknown - Review of Systems General: No Symptoms Pulmonary: No Symptoms Cardiovascular: No Symptoms Gastrointestinal: No Symptoms Neurological: No Symptoms Other: Reports: None - Physical Assessment NPO Status Date: 07/15/19 NPO Status Time: 23:00 ASA Class: 2 Mental Status: Alert & Oriented x3 Airway Class: Mallampati = 2 Dentition: Reports: Caries ROM/Head Extension: Full Lungs: Clear to Auscultation, Normal Respiratory Effort Cardiovascular: Regular Rate, Regular Rhythm - Lab Values: Laboratory Last Values MRSA (PCR) Negative 07/01/19 11:20 - Allergies Allergies/Adverse Reactions: Allergies Allergy/AdvReac Type Severity Reaction Status Date / Time adhesive Allergy Rash Verified 07/15/19 15:31 amoxicillin [From Augmentin] AdvReac Nausea and Verified 07/15/19 15:31 Vomiting clavulanic acid AdvReac Nausea and Verified 07/15/19 15:31 [From Augmentin] Vomiting - Acknowledgements Anesthesia Type Planned: General Anesthesia, Regional Block (interscalene) Pt an Appropriate Candidate for the Planned Anesthesia: Yes Alternatives and Risks of Anesthesia Discussed w Pt/Guardian: Yes Pt/Guardian Understands and Agrees with Anesthesia Plan: Yes PreAnesthesia Questionnaire HEENT History: Reports: Impaired Vision, Other (See Below) Other HEENT History: post nasal drip, wears glasses Respiratory History: Reports: Other (See Below) Other Respiratory History: viral URI with cough, left lower lung surgery Gastrointestinal History: Reports: GERD, Other (See Below) Other Gastrointestinal History: bariatric surgery [employer]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 OB/BYN History: Leiomyosarcoma of uterus Musculoskeletal History: Reports: Osteoarthritis, Other (See Below) Other Musculoskeletal History: achilles tendinitis, left shoulder pain, right knee instability and pain, left knee pain, right carpal tunnel Psychiatric History: Reports: Other (See Below) Other Psychiatric History: claustrophobia Endocrine/Metabolic History: Reports: Obesity/BMI 30+ Oncologic (Cancer) History: Reports: Uterine Other Oncologic History: uterine Dermatologic History: Reports: Other (See Below) Other Dermatologic History: small angioma, mass excision to left lower extremity - Past Surgical History Head Surgeries/Procedures: Reports: None Cardiovascular Surgical History: Reports: None GI Surgical History: Reports: Bariatric Procedure, Cholecystectomy, Colonoscopy Female Surgical History: Reports: Section, Hysterectomy Endocrine Surgical History: Reports: None Neurological Surgical History: Reports: None Musculoskeletal Surgical History: Reports: None Dermatological Surgical History: Reports: None - SUBSTANCE USE Smoking Status *Q: Former Smoker (quit 20 yrs ago) Recreational Drug Use History: No - HOME MEDS Home Medications: Home Meds Multivitamin [Daily Vitamin] 1 each PO DAILY 12/26/14 [History] Diclofenac Sodium 1 dose TOP QID PRN 11/25/18 [History] Acetaminophen/HYDROcodone [[place] 325-5 MG] 1 - 2 tab PO Q6H PRN #40 tablet 11/26 [Rx] Cyclobenzaprine [Flexeril] 10 mg PO Q12H PRN #30 tab 11/26/18 [Rx] Metaxalone 800 mg PO Q8H PRN 07/15/19 [History] Venlafaxine [Venlafaxine HCl ER] 150 mg PO DAILY 07/15/19 [History] - CURRENT (IN HOUSE) MEDS Current Meds: Current Medications Lactated Ringer's (Ringers, Lactated) 1,000 mls @ 125 mls/hr IV ASDIRECTED ISAIAH Stop: 07/16/19 23:00 Lidocaine/Sodium Bicarbonate (Buffered Lidocaine 1% In Ns 8.4%) 0.25 ml IDERM ONETIME PRN PRN Reason: Prior to IV Start Stop: 07/16/19 18:00 Sodium Chloride (Saline Flush) 10 ml FLUSH ASDIRECTED PRN PRN Reason: Keep Vein Open Stop: 07/16/19 18:00 Discontinued Medications Cefazolin Sodium (Ancef) Confirm Administered Dose 2 gm .ROUTE .STK-MED ONE Stop: 07/16/19 06:34 Fentanyl (Sublimaze) Confirm Administered Dose 100 mcg .ROUTE .STK-MED ONE Stop: 07/16/19 06:32 Lidocaine HCl (Xylocaine-Mpf 1%) Confirm Administered Dose 2 mls @ as directed .ROUTE .STK-MED ONE Stop: 07/16/19 06:40 Midazolam HCl (Versed 1 Mg/Ml) Confirm Administered Dose 4 mg .ROUTE .STK-MED ONE Stop: 07/16/19 06:31 Propofol (Diprivan 20 Ml) Confirm Administered Dose 200 mg .ROUTE .STK-MED ONE Stop: 07/16/19 06:31 Ropivacaine (Naropin 0.5%) Confirm Administered Dose 30 ml .ROUTE .[facility]-MED ONE Stop: 07/16/19 06:43
[2019-07-16] MEDS ORDERED: EPINEPHrine 1 MG/1 ML Amp SCH (08:00)
--- NOTE | 2019-07-16 08:12 | PCM.PRNOTE ---
- Free Text/Narrative Note: Postoperative regional pain control requested by surgeon. Pre-op Dx: Left Rotator cuff tear Surgical procedure: Left Rotator cuff repair Procedure: Left Interscalene block with U/S guidance Requesting physician: Dr. Boo Vasques Risks and benefits discussed with the patient preoperatively including infection , bleeding, incomplete or failed block, possible nerve damage, local anesthetic toxicity. Chart reviewed, VS stable. Permit signed. Patient in preoperative room, stable , alert and awake. Time out performed at 07 :48. Oxygen 3L via NC. Left side of the neck was prepped with Chloraprep x 1 and allowed to dry. Midazolam IV 2 mg given. Under aseptic technique, the brachial plexus was identified under ultrasound prior to needle insertion. 2" Stimuplex needle #22 G was inserted under US guidance. Neuromuscular monitoring used during the procedure, forearm twitch elicited at 0.6 mA. Under direct visualization of needle tip the injection of 0.5% Ropivacaine with 1:200k epinephrine, total of 30 mls in divided doses, maintaining negative aspiration was completed without problems. No local anesthetic toxicity was noted. Patient is awake, stable and tolerated the procedure well. Please see the attached U/S images Time: 07:48 - 07:57 Date: 07/16/2019
[2019-07-16] MEDS ORDERED: EPINEPHrine 1 MG/ML 30 ML MDV SCH (08:14)
[2019-07-16] MEDS ORDERED: Lidocaine 1% 6 ML ONE (09:00)
[2019-07-16] MEDS ORDERED: Ondansetron 4 MG/2 ML SDV ONE (09:02)
[2019-07-16] MEDS ORDERED: Dexamethasone 4 MG/ML 5 ML MDV ONE (09:02)
[2019-07-16] MEDS ORDERED: Succinylcholine/Normal Saline 100 MG/5 ML Syringe ONE (09:09)
[2019-07-16] MEDS ORDERED: Lactated Ringers 1,000 ML ONE (09:47)
[2019-07-16] MEDS ORDERED: Ondansetron 4 MG/2 ML SDV IVPUSH PRN (10:17)
[2019-07-16] MEDS ORDERED: fentaNYL 100 MCG/2 ML SDV IVPUSH PRN (10:17)
[2019-07-16] MEDS ORDERED: HYDROmorphone 0.5 MG/0.5 ML Syringe IVPUSH PRN (10:17)
--- NOTE | 2019-07-16 11:10 | PCM.POSTAN ---
POST ANESTHESIA ASSESSMENT - MENTAL STATUS Mental Status: Oriented, Somnolent - VITAL SIGNS Vital Signs: Last Vital Signs Temp 97.5 F 07/16/19 11:00 Pulse 89 07/16/19 11:00 Resp 21 H 07/16/19 11:00 BP 130/95 H 07/16/19 11:00 Pulse Ox 96 07/16/19 11:00 - RESPIRATORY Respiratory Status: Respiratory Rate WNL, Airway Patent, O2 Saturation Stable, Supplemental Oxygen - CARDIOVASCULAR CV Status: Pulse Rate WNL, Blood Pressure Stable - GASTROINTESTINAL GI Status: No Symptoms - PAIN Pain Score: 0 (post ISB) - POST OP HYDRATION Hydration Status: Adequate & Stable
[2019-07-16] MEDS ORDERED: Acetaminophen/oxyCODONE 325-5 MG Tab PO PRN (11:53)
[2019-07-16 13:35] VITALS: BP 137/77; PULSE 54
--- NOTE | 2019-07-16 15:23 | PCM48HPAN ---
Post Anesthesia Note - EVALUATION WITHIN 48HRS OF ANESTHETIC Vital Signs in Normal Range: Yes Patient Participated in Evaluation: Yes Respiratory Function Stable: Yes Airway Patent: Yes Cardiovascular Function Stable: Yes Hydration Status Stable: Yes Pain Control Satisfactory: Yes Nausea and Vomiting Control Satisfactory: Yes Mental Status Recovered: Yes Vital Signs: Last Vital Signs Temp 97.3 F 07/16/19 11:34 Pulse 54 L 07/16/19 13:00 Resp 16 07/16/19 13:00 BP 137/77 07/16/19 13:00 Pulse Ox 97 07/16/19 13:00
--- NOTE | 2019-07-20 17:19 | PCM.OPNOTE ---
- General Post-Op/Procedure Note Date of Surgery/Procedure: 07/16/19 Operative Procedure(s): left shoulder video arthroscopy with small rotator cuff repair and extensive debridement Pre Op Diagnosis: left shoulder rotator cuff tear Post-Op Diagnosis: Same Anesthesia Technique: General ET Tube, Regional Block Primary Surgeon: Boo Stinson Anesthesia Provider: [employer] Warden: Katia Davis EBL in mLs: 5 Complications: None Condition: Good
--- NOTE | 2019-07-20 18:04 | OR ---
DATE OF OPERATION: 07/16/2019 SURGEON: Boo Stinson MD OPERATION PERFORMED: Left shoulder video arthroscopy, a small rotator cuff repair, and extensive debridement. PREOPERATIVE DIAGNOSIS: Left shoulder rotator cuff tear. POSTOPERATIVE DIAGNOSIS: Left shoulder rotator cuff tear. ANESTHESIA: General endotracheal intubation with regional interscalene block. ANESTHESIA PROVIDER: Ping Ortiz. [place] ADMINISTRATOR: Katia Davis PA-C, ESTIMATED BLOOD LOSS: Less than 5 mL. COMPLICATIONS: None. CONDITION: Stable. DESCRIPTION OF PROCEDURE: The patient was identified in the preoperative holding area. Proper site was marked and identified by the surgeon. The patient was taken back to the operating theater where after adequate anesthesia, the patient was placed in a lazy right lateral decubitus position. A wedge was placed posteriorly. The patient was secured to the table. Right upper extremity was then sterilely prepped and draped in the usual sterile fashion. OR time-out was performed. The patient received 2 g of IV Ancef. Ten pounds of traction was applied to the right upper extremity. Standard posterior incision was made utilizing the previous incision from before. The scope was introduced to the glenohumeral joint. At this time, an anterior portal was created with the use of a spinal needle. Cursory examination did show significant synovitis in the joint. There was only mild amount of chondromalacia of the glenoid, otherwise the subscapularis tendon was intact. Superior labrum was frayed and I did do a debridement of the synovitis as well as of the superior labrum. At this time, the rest of the labrum was intact and no other tears were noted. The patient was noted to have maybe partial-thickness tear near the anterior portion of the supraspinatus tendon, but the rest of the repair was intact from previous. Attention was turned to the subacromial space. The patient did have some bursitis noted in this region with a small amount of synovial growth, so I did do a debridement of this space as well at this time. The patient was noted to have some partial-thickness tearing in the anterior portion of the supraspinatus. So, at this time, I did take down the partial tearing. A complete tear, I put one 4.75 mm Arthrex SwiveLock anchor medially, loaded with 1 limb of FiberWire and 1 limb of FiberTape. After this was passed and all 4 limbs were passed, I tied the FiberWire and then all 4 limbs were brought out laterally. Another lateral row repair anchor was placed with another 4.75 mm Arthrex SwiveLock anchor laterally. All 4 limbs were brought out through it and it was repaired with a watertight repair with double and over of the anterior portion of the supraspinatus. The patient was noted to have very ratty type tissue of the entire rotator cuff all the way to the muscle belly junction, but it was a complete healed rotator cuff repair from previous other than that small portion. At this time, excess saline was drained from the shoulder. 3-0 nylon suture was used for closure of the skin. The patient was placed in a sterile soft dressing and a pillow sling and sent to PACU in stable condition. NIDIA /[id number]
== END 2019-07-16 13:30 | disposition home or self-care (01) ==
LOC: JD.SDS 06:13
PROVIDERS: ATTEND Orthopaedic Surgery
DX: M75.112 Incomplete rotator cuff tear or rupture of left shoulder, not specified as traumatic (principal); M75.52 Bursitis of left shoulder; K21.9 Gastro-esophageal reflux disease without esophagitis; M19.90 Unspecified osteoarthritis, unspecified site; E66.9 Obesity, unspecified; Z88.0 Allergy status to penicillin; Z79.899 Other long term (current) drug therapy; Z98.890 Other specified postprocedural states; Z87.891 Personal history of nicotine dependence; Z91.048 Other nonmedicinal substance allergy status; Z68.41 Body mass index [BMI] 40.0-44.9, adult
CPT/HCPCS: 29823; 29827; 87641; A9270; J0171; J0330; J0690; J1100; J2001; J2250; J2405; J2704; J2795; J3010; J7120; 01630; 64415

== ENCOUNTER 2020-02-04 06:30 | Day surgery (SDC) | payer OTHER ==
[2020-02-04] MEDS ORDERED: EPINEPHrine 1 MG/ML 30 ML MDV IRR SCH (07:00)
--- NOTE | 2020-02-04 07:23 | PCM.PREANE ---
Preanesthetic Assessment - Procedure Proposed Procedure: Right shoulder arthroscopy - Anesthesia/Transfusion/Family Hx Anesthesia History: Prior Anesthesia Without Reaction Transfusion History: No Prior Transfusion(s) Intubation History: Unknown - Review of Systems General: No Symptoms Pulmonary: No Symptoms Cardiovascular: No Symptoms Gastrointestinal: No Symptoms Neurological: No Symptoms Other: Reports: None - Physical Assessment NPO Status Date: 02/03/20 NPO Status Time: 21:00 Vital Signs: Last Vital Signs Temp 97.9 F 02/04/20 07:07 Pulse 71 02/04/20 07:07 Resp 16 02/04/20 07:07 BP 122/73 02/04/20 07:07 Pulse Ox 97 02/04/20 07:07 ASA Class: 2 Mental Status: Alert & Oriented x3 Airway Class: Mallampati = 2 Dentition: Reports: Missing Tooth/Teeth, Caries ROM/Head Extension: Full Lungs: Clear to Auscultation, Normal Respiratory Effort Cardiovascular: Regular Rate, Regular Rhythm - Lab Values: Laboratory Last Values COVID-19 PCR Not detected (NOT DETECT) 02/01/20 09:45 - Allergies Allergies/Adverse Reactions: Allergies Allergy/AdvReac Type Severity Reaction Status Date / Time adhesive Allergy Rash Verified 02/03/20 13:32 amoxicillin [From Augmentin] AdvReac Nausea and Verified 02/03/20 13:32 Vomiting clavulanic acid AdvReac Nausea and Verified 02/03/20 13:32 [From Augmentin] Vomiting - Acknowledgements Anesthesia Type Planned: General Anesthesia, Regional Block (right interscalene) Pt an Appropriate Candidate for the Planned Anesthesia: Yes Alternatives and Risks of Anesthesia Discussed w Pt/Guardian: Yes Pt/Guardian Understands and Agrees with Anesthesia Plan: Yes PreAnesthesia Questionnaire HEENT History: Reports: Impaired Vision, Other (See Below) Other HEENT History: nasal sore, wears glasses Cardiovascular History: Reports: None Respiratory History: Reports: Other (See Below) Other Respiratory History: Left lung nodule from metastatic cancer. lung surgery. Gastrointestinal History: Reports: GERD Other Gastrointestinal History: bariatric surgery Genitourinary History: Reports: None DIRECTOR OF EXHIBIT DEVELOPMENT History: Reports: Other OB/BYN History: Leiomyosarcoma of uterus Musculoskeletal History: Reports: Fibromyalgia, Other (See Below) Other Musculoskeletal History: polyarthralgia, shoulder impingment, supraspinatus tendinitis, trapezius muscle spasm, hip pain, knee pain Neurological History: Reports: None Psychiatric History: Reports: Anxiety, Depression, Other (See Below) Other Psychiatric History: fatigue, claustrophobia Endocrine/Metabolic History: Reports: Obesity/BMI 30+ Hematologic History: Reports: None Immunologic History: Reports: None Oncologic (Cancer) History: Other Oncologic History: uterine Dermatologic History: Reports: None Other Dermatologic History: small angioma, mass excision to left lower extremity - Past Surgical History Head Surgeries/Procedures: Reports: None HEENT Surgical History: Reports: None Cardiovascular Surgical History: Reports: None Respiratory Surgical History: Reports: Other (See Below) Other Respiratory Surgeries/Procedures: small protion of left lung removed due to cancer (October 2014) GI Surgical History: Reports: Bariatric Procedure, Cholecystectomy, Colonoscopy Other GI Surgeries/Procedures: gastric surgery Female Surgical History: Reports: Section, Hysterectomy Other Female Surgeries/Procedures: Leiomyosarcoma---soft tissue cancer of uterus Male Surgical History: Reports: None Endocrine Surgical History: Reports: None Neurological Surgical History: Reports: None Musculoskeletal Surgical History: Reports: Arthroscopic Procedure (Lt shoulder x2), Shoulder Surgery Other Musculoskeletal Surgeries/Procedures:: burisitis bilateral shoulders Oncologic Surgical History: Reports: None Dermatological Surgical History: Reports: None - SUBSTANCE USE Smoking Status *Q: Never Smoker Recreational Drug Use History: No - HOME MEDS Home Medications: Home Meds Multivitamin [Daily Vitamin] 1 each PO DAILY 12/26/14 [History] Venlafaxine [Venlafaxine HCl ER] 37.5 mg PO DAILY 07/15/19 [History] Citalopram [Citalopram HBr] 30 mg PO DAILY 02/03/20 [History] Acetaminophen [Tylenol] 500 mg PO Q6H PRN #0 02/04/20 [Rx] Acetaminophen/HYDROcodone [[place] 325-5 MG] 1 - 2 tab PO Q6H PRN #40 tablet 02/04/20 [Rx] Cyclobenzaprine [Flexeril] 5 mg PO Q12H PRN #20 tab 02/04/20 [Rx] - CURRENT (IN HOUSE) MEDS Current Meds: Current Medications Epinephrine HCl (Adrenalin) 3 mg IRR ONETIME ISAIAH Stop: 02/04/20 13:00 Lactated Ringer's (Ringers, Lactated) 1,000 mls @ 125 mls/hr IV ASDIRECTED ISAIAH Stop: 02/04/20 23:00 Lidocaine/Sodium Bicarbonate (Buffered Lidocaine 1% In Ns 8.4%) 0.25 ml IDERM ONETIME PRN PRN Reason: Prior to IV Start Stop: 02/04/20 18:00 Sodium Chloride (Saline Flush) 10 ml FLUSH ASDIRECTED PRN PRN Reason: Keep Vein Open Stop: 02/04/20 18:00
[2020-02-04] MEDS ORDERED: Ropivacaine 0.5% 5 MG/ML 30 ML SDV ONE (07:25)
[2020-02-04] MEDS ORDERED: Propofol 200 MG/20 ML SDV ONE (07:27)
[2020-02-04] MEDS ORDERED: Midazolam 1 MG/ML 2 ML SDV ONE (07:28)
[2020-02-04] MEDS ORDERED: Lidocaine 1% 4 ML ONE (07:28)
[2020-02-04] MEDS ORDERED: Lidocaine 1% 2 ML ONE (07:28)
[2020-02-04] MEDS ORDERED: fentaNYL 100 MCG/2 ML SDV ONE (07:28)
[2020-02-04] MEDS ORDERED: Succinylcholine/Sod PF 100 MG/5 ML SYRINGE IV ONE (07:28)
[2020-02-04] MEDS ORDERED: Dexamethasone 4 MG/ML 5 ML MDV ONE (07:31)
[2020-02-04] MEDS ORDERED: cloNIDine 1,000 MCG/10 ML SDV ONE (07:31)
[2020-02-04] MEDS ORDERED: ceFAZolin 1 GM Vial ONE ×2 (07:34→08:31)
[2020-02-04] MEDS ORDERED: Lactated Ringers 1,000 ML ONE (08:34)
[2020-02-04] MEDS ORDERED: HYDROmorphone 0.5 MG/0.5 ML Syringe IVPUSH PRN (09:27)
[2020-02-04] MEDS ORDERED: fentaNYL 100 MCG/2 ML SDV IVPUSH PRN (09:27)
--- NOTE | 2020-02-04 09:27 | PCM.PRNOTE ---
- Free Text/Narrative Note: Postoperative regional pain control requested by surgeon. Pre-op Dx: Right Rotator cuff tear Surgical procedure: Rotator cuff repair with subacromial decompression Procedure: Rt Interscalene block with U/S guidance Requesting physician: Dr. Boo Vasques Risks and benefits discussed with the patient preoperatively including infection, bleeding, incomplete or failed block, possible nerve damage, local anesthetic toxicity. Chart reviewed, VS stable. Permit signed. Patient in preoperative room, stable , alert and awake. Time out performed at 07:56. Oxygen 3L via NC. Right side of the neck was prepped with Chloraprep x 1 and allowed to dry. Midazolam IV 2 mg given. Under aseptic technique, the brachial plexus was identified under ultrasound prior to needle insertion. Local infiltration with 2mls of 1% Lidocaine. 2" Stimuplex needle #22 G was inserted under US guidance. Neuromuscular response of biceps contraction and forearm twitching elicited at 0.6 mA. Under direct visualization of needle tip the injection of 0.5% Ropivacaine with 1:200k epinephrine with added 6 mg of Dexamethasone and 100 mcg of Clonidine, total of 28 mls in divided doses, maintaining negative aspiration was completed without problems. No local anesthetic toxicity was noted. Patient is awake, stable and tolerated the proce dure well. Please see the attached U/S image Time: 07:56 - 08:05
[2020-02-04] MEDS ORDERED: Ondansetron 4 MG/2 ML SDV ONE (09:29)
--- NOTE | 2020-02-04 10:53 | PCM.POSTAN ---
POST ANESTHESIA ASSESSMENT - MENTAL STATUS Mental Status: Somnolent - VITAL SIGNS Vital Signs: Last Vital Signs Temp 96.6 F L 02/04/20 10:35 Pulse 75 02/04/20 10:49 Resp 14 02/04/20 10:49 BP 115/55 L 02/04/20 10:49 Pulse Ox 94 L 02/04/20 10:49 - RESPIRATORY Respiratory Status: Respiratory Rate WNL, Airway Patent, O2 Saturation Stable, Supplemental Oxygen - CARDIOVASCULAR CV Status: Pulse Rate WNL, Blood Pressure Stable - GASTROINTESTINAL GI Status: No Symptoms - PAIN Pain Score: 0 (post SAB) - POST OP HYDRATION Hydration Status: Adequate & Stable
--- NOTE | 2020-02-04 11:56 | PCM48HPAN ---
Post Anesthesia Note - EVALUATION WITHIN 48HRS OF ANESTHETIC Vital Signs in Normal Range: Yes Patient Participated in Evaluation: Yes Respiratory Function Stable: Yes Airway Patent: Yes Cardiovascular Function Stable: Yes Hydration Status Stable: Yes Pain Control Satisfactory: Yes Nausea and Vomiting Control Satisfactory: Yes Mental Status Recovered: Yes Vital Signs: Last Vital Signs Temp 35.9 C L 02/04/20 10:35 Pulse 72 02/04/20 11:21 Resp 15 02/04/20 11:21 BP 116/69 02/04/20 11:21 Pulse Ox 96 02/04/20 11:21
[2020-02-04 13:19] VITALS: BP 118/62; PULSE 68
--- NOTE | 2020-02-08 07:09 | PCM.OPNOTE ---
- General Post-Op/Procedure Note Date of Surgery/Procedure: 02/04/20 Operative Procedure(s): right shoulder video arthroscopy with rotator cuff repair and extensive debridement Pre Op Diagnosis: right shoulder rotator cuff tear Post-Op Diagnosis: Same Anesthesia Technique: General ET Tube, Regional Block Primary Surgeon: Boo Stinson Anesthesia Provider: Zac Power Laborer Heading: Katia Davis in mLs: 5 Complications: None Condition: Good
--- NOTE | 2020-02-08 22:39 | OR ---
DATE OF OPERATION: 02/04/2020 SURGEON: Boo Stinson MD OPERATION PERFORMED: Right shoulder video arthroscopy with rotator cuff repair and extensive debridement. PREOPERATIVE DIAGNOSIS: Right shoulder rotator cuff tear. POSTOPERATIVE DIAGNOSIS: Right shoulder rotator cuff tear with synovitis and bursitis. ANESTHESIA: General endotracheal intubation with regional interscalene block. ANESTHESIA PROVIDER: Ping Ortiz CLINICAL AUDITOR: Katia Davis PA-C ESTIMATED BLOOD LOSS: 5 mL. COMPLICATIONS: None. CONDITION: Stable. DESCRIPTION OF PROCEDURE: The patient was identified in the preoperative holding area. Proper site was marked and identified by the surgeon. The patient was taken back to the operating theater, where after adequate anesthesia, the patient was placed in the lazy left lateral decubitus position. A wedge was placed posteriorly. The patient was secured to the table. Right upper extremity was then sterilely prepped and draped in the usual sterile fashion. OR time-out was performed. The patient received 2 g IV Ancef. 12 pounds traction was applied to the right upper extremity. Standard posterior incision was made. Scope trocar was introduced to the glenohumeral joint. The patient did have a small amount of grade 1 chondromalacia. Subscapularis tendon was intact. The patient was noted to have full-thickness tear of the anterior portion of the supraspinatus. At this time, attention was turned to the subacromial space and an extensive debridement of the bursitis as well as synovitis was done at this time. The patient was noted to have full-thickness retraction of the anterior portion of the supraspinatus and you could see where the tendon had cut out of the sutures leaving end-to-end tears both vertically and off the footprint. At this time, I placed 2 medial row all suture anchors of Alpine medially with 6 limbs of suture. I was able to pass the first 5 limbs through the anterior portion of the supraspinatus. I did have to do a debridement of the attachment of the supraspinatus to medialize it secondary to there being much less excursion and less tissue secondary to severe fraying of the tissue of the supraspinatus. At this time, with a very last stitch, I was able to do an end-to-end repair of the remaining portion of the supraspinatus that had linear tears in it. I did tie this portion at this time and then brought all limbs of suture out and place 2 lateral Alpine anchors in a convergent fashion for an adequate repair of the anterior supraspinatus. It was noted that there was opening near the rotator interval where some fibers of the supraspinatus had to be debrided as they were too badly torn and had no chance of alevism of their fibers. At this time, I did do another debridement of any bursa. We had done the previous subacromial decompression. There was no need for further one. At this time, excess saline was drained from the shoulder. 3-0 nylon suture was used for closure of the skin. The patient tolerated the procedure well and sent to PACU in stable condition. NIDIA /[id number]
== END 2020-02-04 13:35 | disposition home or self-care (01) ==
LOC: JD.SDS 06:30
PROVIDERS: ATTEND Orthopaedic Surgery
DX: M75.121 Complete rotator cuff tear or rupture of right shoulder, not specified as traumatic (principal); M65.811 Other synovitis and tenosynovitis, right shoulder; M75.51 Bursitis of right shoulder; M94.211 Chondromalacia, right shoulder; F41.9 Anxiety disorder, unspecified; F32.9 Major depressive disorder, single episode, unspecified; E66.9 Obesity, unspecified; Z01.812 Encounter for preprocedural laboratory examination; Z20.828 Contact with and (suspected) exposure to other viral communicable diseases; Z79.899 Other long term (current) drug therapy; Z88.0 Allergy status to penicillin; Z88.1 Allergy status to other antibiotic agents; Z68.41 Body mass index [BMI] 40.0-44.9, adult; Z87.891 Personal history of nicotine dependence; Z98.890 Other specified postprocedural states
CPT/HCPCS: 29823; 29827; 87635; C1713; J0171; J0330; J0690; J0735; J1100; J2001; J2250; J2405; J2704; J2795; J3010; J7120; 01630; 64415; U0002

== ENCOUNTER 2020-08-27 13:56 | Emergency (ER) | payer OTHER ==
[2020-08-27] MEDS ORDERED: Sodium Chloride 0.9% 10 ML Syringe FLUSH PRN (15:33)
[2020-08-27] MEDS ORDERED: Sodium Chloride 0.9% 1,000 ML IV ONE (15:34)
[2020-08-27] MEDS ORDERED: Metoclopramide 10 MG/2 ML SDV IVPUSH ONE (15:34)
[2020-08-27] MEDS ORDERED: Ketorolac 30 MG/ML SDV IVPUSH ONE (15:34)
[2020-08-27] MEDS ORDERED: diphenhydrAMINE 50 MG/ML SDV IVPUSH ONE (15:34)
--- NOTE | 2020-08-27 15:39 | EDM.PDOC ---
ED HPI GENERAL MEDICAL PROBLEM - General Chief Complaint: Respiratory Problem Stated Complaint: SOB/HEADACHE X 4 DAYS Time Seen by Provider: 08/27/20 15:23 Source of Information: Reports: Patient, RN Notes Reviewed History Limitations: Reports: No Limitations - History of Present Illness INITIAL COMMENTS - FREE TEXT/NARRATIVE: Patient is a 55-year-old female who presents to the ED for evaluation of her shortness of breath with exertion, headache, generalized body aches, and diarrhea. Patient notes that she had neck fusion roughly 4 weeks ago, and been having a sore throat since then because she did have a breathing tube placed. She is complaining of a generalized headache at today's visit as well, and she states when she does any sort of walking at all, it winds her pretty quick. She states that when she takes a deep breath as well, she has generalized chest pain, that feels deep. She is complaining of multiple bouts of diarrhea throughout the day that seem watery and dark yellow. She notes these are loose and sometimes do have some formed portions to them. She states she is able to eat a little bit of food, but has not had much of an appetite. She is denying any dizziness or lightheadedness, she states she has been taking Tylenol for her symptoms, and this seems to help somewhat. She has had chills but no fever. Patient states that she was exposed to a friend who had a cold 2 weeks ago, and found out that her had Covid at that time. Generalized Pain Score (Numeric/FACES): 4 - Related Data Allergies Allergy/AdvReac Type Severity Reaction Status Date / Time adhesive Allergy Severe Rash Verified 08/27/20 14:59 amoxicillin [From Augmentin] AdvReac Severe Nausea and Verified 08/27/20 14:59 Vomiting clavulanic acid AdvReac Severe Nausea and Verified 08/27/20 14:59 [From Augmentin] Vomiting Home Meds: Home Meds Venlafaxine [Venlafaxine HCl ER] 37.5 mg PO DAILY 07/15/19 [History] Citalopram [Citalopram HBr] 30 mg PO DAILY 02/03/20 [History] Metaxalone [Skelaxin] 800 mg PO Q8H PRN #30 tablet 02/04/20 [Rx] Past Medical History HEENT History: Reports: Impaired Vision, Other (See Below) Other HEENT History: nasal sore, wears glasses Cardiovascular History: Reports: None Respiratory History: Reports: Other (See Below) Other Respiratory History: Left lung nodule from metastatic cancer Gastrointestinal History: Reports: GERD Other Gastrointestinal History: bariatric surgery Genitourinary History: Reports: None [employer] MEMBER History: Reports: Other [employer] MEMBER History: Leiomyosarcoma of uterus Musculoskeletal History: Reports: Fibromyalgia, Other (See Below) Other Musculoskeletal History: polyarthralgia, shoulder impingment, supraspinatus tendinitis, trapezius muscle spasm, hip pain, knee pain Neurological History: Reports: None Psychiatric History: Reports: Other (See Below) Other Psychiatric History: fatigue, claustrophobia Endocrine/Metabolic History: Reports: Obesity/BMI 30+ Hematologic History: Reports: None Immunologic History: Reports: None Oncologic (Cancer) History: Reports: None Other Oncologic History: uterine Dermatologic History: Reports: None Other Dermatologic History: small angioma, mass excision to left lower extremity - Past Surgical History Respiratory Surgical History: Reports: Other (See Below) Other Respiratory Surgeries/Procedures: small portion of left lung removed due to cancer (October 2014) GI Surgical History: Reports: Bariatric Procedure, Cholecystectomy, Colonoscopy Other GI Surgeries/Procedures: gastric surgery Female Surgical History: Reports: Section, Hysterectomy Other Female Surgeries/Procedures: Leiomyosarcoma---soft tissue cancer of uterus Neurological Surgical History: Reports: C-Spine (cervical fusion 07/2020) Musculoskeletal Surgical History: Reports: Arthroscopic Procedure, Shoulder Surgery Other Musculoskeletal Surgeries/Procedures:: burisitis bilateral shoulders Social & Family History - Tobacco Use Tobacco Use Status *Q: Never Tobacco User - Caffeine Use Caffeine Use: Reports: Coffee, Soda - Recreational Drug Use Recreational Drug Use: No ED ROS GENERAL - Review of Systems Review Of Systems: Comprehensive ROS is negative, except as noted in HPI. ED EXAM, GENERAL - Physical Exam Exam: See Below Exam Limited By: No Limitations General Appearance: Alert, WD/WN, No Apparent Distress Respiratory/Chest: No Respiratory Distress, Lungs Clear, Normal Breath Sounds, No Accessory Muscle Use, Chest Non-Tender Cardiovascular: Normal Peripheral Pulses, Regular Rate, Rhythm, No Edema Peripheral Pulses: 2+: Radial (L), Radial (R) GI/Abdominal: Normal Bowel Sounds, Soft, Non-Tender, No Distention, No Mass Extremities: Normal Inspection, Normal Capillary Refill Neurological: Alert, Oriented, Normal Cognition, No Motor/Sensory Deficits Psychiatric: Normal Affect, Normal Mood Skin Exam: Warm, Dry, Intact, Normal Color, No Rash Course - Vital Signs Last Recorded V/S: Last Vital Signs Temp 97 F 08/27/20 18:24 Pulse 75 08/27/20 18:24 Resp 16 08/27/20 18:24 BP 135/89 08/27/20 18:24 Pulse Ox 98 08/27/20 18:24 - Orders/Labs/Meds Orders: Active Orders 24 hr Category Date Time Status Peripheral IV Care [RC] . DIRECTED Care 08/27/20 15:33 Active Vital Signs [RC] Q15M Care 08/27/20 17:04 Ordered EPINEPHrine [Adrenalin] Med 08/27/20 17:03 Active 0.3 mg IM ONETIME PRN Famotidine [Pepcid] Med 08/27/20 17:03 Active 20 mg IVPUSH ONETIME PRN Sodium Chloride 0.9% [Saline Flush] Med 08/27/20 15:33 Active 10 ml FLUSH ASDIRECTED PRN Sodium Chloride 0.9% [Saline Flush] Med 08/27/20 17:15 Active 30 ml FLUSH ASDIRECTED diphenhydrAMINE [Benadryl] Med 08/27/20 17:03 Active 50 mg IVPUSH ONETIME PRN methylPREDNISolone Sod Succ [Solu-MEDROL] Med 08/27/20 17:03 Active 125 mg IVPUSH ONETIME PRN Peripheral IV Insertion Adult [OM.PC] Routine Oth 08/27/20 15:33 Ordered Medication Orders Diphenhydramine HCl (Diphenhydramine 50 Mg/Ml Sdv) 50 mg IVPUSH ONETIME PRN PRN Reason: hypersensitivity reaction Epinephrine HCl (Epinephrine 1 Mg/Ml Sdv) 0.3 mg IM ONETIME PRN PRN Reason: hypersensitivity reaction Famotidine (Famotidine 20 Mg/2 Ml Sdv) 20 mg IVPUSH ONETIME PRN PRN Reason: hypersensitivity reaction Methylprednisolone Sodium Succinate (Methylprednisolone Sodium Succinate 125 Mg/2 Ml Sdv) 125 mg IVPUSH ONETIME PRN PRN Reason: hypersensitivity reaction Sodium Chloride (Sodium Chloride 0.9% 10 Ml Syringe) 10 ml FLUSH ASDIRECTED PRN PRN Reason: Keep Vein Open Last Admin: 08/27/20 16:02 Dose: 10 ml Documented by: ALANNA Sodium Chloride (Sodium Chloride 0.9% 10 Ml Syringe) 30 ml FLUSH ASDIRECTED [facility] Labs: Laboratory Tests 08/27/20 08/27/20 08/27/20 Range/Units 16:00 16:00 16:00 WBC 4.79 (3.98-10.04) K/mm3 RBC 4.14 (3.98-5.22) M/mm3 Hgb 11.7 (11.2-15.7) gm/dl Hct 37.3 (34.1-44.9) % MCV 90.1 (79.4-94.8) fl MCH 28.3 (25.6-32.2) pg MCHC 31.4 L (32.2-35.5) g/dl RDW Std Deviation 44.8 (36.4-46.3) fL Plt Count 382 H (182-369) K/mm3 MPV 9.3 L (9.4-12.3) fl Neut % (Auto) 66.0 (34.0-71.1) % Lymph % (Auto) 25.3 (19.3-51.7) % [place] % (Auto) 7.9 (4.7-12.5) % Eos % (Auto) 0.6 L (0.7-5.8) Baso % (Auto) 0.0 L (0.1-1.2) % Neut # (Auto) 3.16 (1.56-6.13) K/mm3 Lymph # (Auto) 1.21 (1.18-3.74) K/mm3 [place] # (Auto) 0.38 H (0.24-0.36) K/mm3 Eos # (Auto) 0.03 L (0.04-0.36) K/mm3 Baso # (Auto) 0.00 L (0.01-0.08) K/mm3 D-Dimer, Quantitative 0.52 H (0.19-0.50) mg/L Sodium 143 (136-145) mEq/L Potassium 3.2 L (3.5-5.1) mEq/L Chloride 104 (98-107) mEq/L Carbon Dioxide 29 (21-32) mEq/L Anion Gap 13.2 (5-15) BUN 10 (7-18) mg/dL Creatinine 0.6 (0.55-1.02) mg/dL Est Cr Clr Drug Dosing 88.67 mL/min Estimated GFR (MDRD) > 60 (>60) mL/min BUN/Creatinine Ratio 16.7 (14-18) Glucose 94 (74-106) mg/dL Calcium 9.3 (8.5-10.1) mg/dL Ferritin (8-252) ng/ml Total Bilirubin 0.3 (0.2-1.0) mg/dL AST 25 (15-37) U/L ALT 28 (14-59) U/L Alkaline Phosphatase 100 (46-116) U/L C-Reactive Protein 4.2 H* (<1.0) mg/dL Total Protein 7.3 (6.4-8.2) g/dl Albumin 3.5 (3.4-5.0) g/dl Globulin 3.8 gm/dL Albumin/Globulin Ratio 0.9 L (1-2) Influenza Type A RNA (NEGATIVE) Influenza Type B RNA (NEGATIVE) SARS-CoV-2 RNA (CARLA) (NEGATIVE) 08/27/20 08/27/20 Range/Units 16:00 16:10 WBC (3.98-10.04) K/mm3 RBC (3.98-5.22) M/mm3 Hgb (11.2-15.7) gm/dl Hct (34.1-44.9) % MCV (79.4-94.8) fl MCH (25.6-32.2) pg MCHC (32.2-35.5) g/dl RDW Std Deviation (36.4-46.3) fL Plt Count (182-369) K/mm3 MPV (9.4-12.3) fl Neut % (Auto) (34.0-71.1) % Lymph % (Auto) (19.3-51.7) % [place] % (Auto) (4.7-12.5) % Eos % (Auto) (0.7-5.8) Baso % (Auto) (0.1-1.2) % Neut # (Auto) (1.56-6.13) K/mm3 Lymph # (Auto) (1.18-3.74) K/mm3 [place] # (Auto) (0.24-0.36) K/mm3 Eos # (Auto) (0.04-0.36) K/mm3 Baso # (Auto) (0.01-0.08) K/mm3 D-Dimer, Quantitative (0.19-0.50) mg/L Sodium (136-145) mEq/L Potassium (3.5-5.1) mEq/L Chloride (98-107) mEq/L Carbon Dioxide (21-32) mEq/L Anion Gap (5-15) BUN (7-18) mg/dL Creatinine (0.55-1.02) mg/dL Est Cr Clr Drug Dosing mL/min Estimated GFR (MDRD) (>60) mL/min BUN/Creatinine Ratio (14-18) Glucose (74-106) mg/dL Calcium (8.5-10.1) mg/dL Ferritin 53 (8-252) ng/ml Total Bilirubin (0.2-1.0) mg/dL AST (15-37) U/L ALT (14-59) U/L Alkaline Phosphatase (46-116) U/L C-Reactive Protein (<1.0) mg/dL Total Protein (6.4-8.2) g/dl Albumin (3.4-5.0) g/dl Globulin gm/dL Albumin/Globulin Ratio (1-2) Influenza Type A RNA Negative (NEGATIVE) Influenza Type B RNA Negative (NEGATIVE) SARS-CoV-2 RNA (CARLA) Positive H (NEGATIVE) Meds: Medications Generic Name Dose Route Start Last Admin Trade Name Freq PRN Reason Stop Dose Admin Diphenhydramine HCl 50 mg 08/27/20 17:03 Diphenhydramine 50 Mg/Ml Sdv IVPUSH ONETIME PRN hypersensitivity reaction Epinephrine HCl 0.3 mg 08/27/20 17:03 Epinephrine 1 Mg/Ml Sdv IM ONETIME PRN hypersensitivity reaction Famotidine 20 mg 08/27/20 17:03 Famotidine 20 Mg/2 Ml Sdv IVPUSH ONETIME PRN hypersensitivity reaction Methylprednisolone Sodium Succinate 125 mg 08/27/20 17:03 Methylprednisolone Sodium Succinate 125 Mg/2 Ml Sdv IVPUSH ONETIME PRN hypersensitivity reaction Sodium Chloride 10 ml 08/27/20 15:33 08/27/20 16:02 Sodium Chloride 0.9% 10 Ml Syringe FLUSH 10 ml ASDIRECTED PRN Administration Keep Vein Open Sodium Chloride 30 ml 08/27/20 17:15 Sodium Chloride 0.9% 10 Ml Syringe FLUSH ASDIRECTED ISAIAH Discontinued Medications Generic Name Dose Route Start Last Admin Trade Name Tacho PRN Reason Stop Dose Admin Diphenhydramine HCl 25 mg 08/27/20 15:34 08/27/20 16:00 Diphenhydramine 50 Mg/Ml Sdv IVPUSH 08/27/20 15:35 25 mg ONETIME ONE Administration Sodium Chloride 1,000 mls @ 999 mls/hr 08/27/20 15:34 08/27/20 15:59 Normal Saline IV 08/27/20 16:34 999 mls/hr ONETIME ONE Administration Bamlanivimab 700 mg/ Sodium 270 mls @ 270 mls/hr 08/27/20 17:03 08/27/20 18:16 Chloride IV 08/27/20 17:04 270 mls/hr ONETIME ONE Administration Protocol Ketorolac Tromethamine 30 mg 08/27/20 15:34 08/27/20 16:00 Ketorolac 30 Mg/Ml Sdv IVPUSH 08/27/20 15:35 30 mg ONETIME ONE Administration Metoclopramide HCl 10 mg 08/27/20 15:34 08/27/20 15:59 Metoclopramide 10 Mg/2 Ml Sdv IVPUSH 08/27/20 15:35 10 mg ONETIME ONE Administration - Re-Assessments/Exams Free Text/Narrative Re-Assessment/Exam: 08/27/20 15:39 Patient presents to the ED for the evaluation of her multiple symptoms. We will check her for COVID-19 due to her exposure, we will give her some meds for her headache, check some baseline labs as well. Patient does have some pleuritic type chest pain that she is characterizing. We will evaluate for pulmonary embolus at this time. 08/27/20 17:04 Laboratory evaluation did demonstrate a mildly elevated D-dimer at 0.54. CRP elevated at 4.2. And the patient's Covid test in the ER is positive for today's purposes. Patient's O2 sats are 98% on room air, and she does not seem to be in any respiratory distress at baseline. I spoke with the patient to provide information about bamlanivimab treatment. I offered them the "And[employer] bamlanivimab fact sheet" to read and review. I stated that the drug has been approved by an emergency use authorization (EUA) process and has not been fully FDA reviewed or approved. The patient meets the EUA requirements. I discussed there are other potential treatment options that are currently not FDA approved to treat COVID-19. I did offer an opportunity to ask questions and all questions were answered. The patient voiced understanding and agreed to proceed with the treatment. 08/27/20 18:01 The patient's chest x-ray does demonstrate findings compatible with a Covid pne umonia at this time. Again patient's O2 sats are in the upper 90s and have remained that way while she has been in the ER. 08/27/20 18:59 Patient has been receiving her bamlanivimab treatment, and is not having any issues with this, she can be discharged at 20:16 If she is tolerating things well. I have given her general recommendations. Departure - Departure Time of Disposition: 19:00 Disposition: Home, Self-Care 01 Condition: Good Clinical Impression: COVID-19 - Discharge Information *PRESCRIPTION DRUG MONITORING PROGRAM REVIEWED*: No *COPY OF PRESCRIPTION DRUG MONITORING REPORT IN PATIENT LATOSHA: No Instructions: COVID-19 Frequently Asked Questions, 10 Things You Can Do to Manage Your COVID-19 Symptoms at Home - [facility] Referrals: Julio Ho PA-C [Primary Care Provider] - Forms: ED Department Discharge Additional Instructions: You were seen in the ER today for ongoing and/or worsening respiratory symptoms. Your chest x-ray showed subtle signs of a viral pneumonia compatible with COVID- 19 at this time. Your oxygen levels were great at 97% on room air. You were given an monoclonal antibody therapy for your ongoing Covid management, this should help decrease the severity of her symptoms, and decrease the length that you are experiencing symptoms. Please try to increase your oral fluid intake, and eat multiple small meals throughout the day, to keep yourself healthy. You need to keep yourself nourished in order to fight off this disease. You can try a liquid diet like gatorade/powerade as well to get your electrolytes. You may take 500 mg Tylenol every hours 6 hours for pain/fever relief. Do not exceed 4000 mg Tylenol in a 24-hour time span. However, running a fever is your body's natural response to illness, and it allows the body to develop antibodies to disease, we are recommending trying to limit the use of Tylenol as much as possible to allow your body's natural immune response. Recommend you obtain a pulse oximeter and monitor your oxygen levels at home, you should place the monitor on your finger, and sit in a calm, quiet position for a few minutes and then record the number that is on the screen. If this consistently below 90% on room air without movement, this would be cause for concern to come back to the hospital for further management of your COVID-19 disease. You will likely be getting called from the [facility], highly recommend you go home, and quarantine yourself away from others if possible, to help mitigate the spread of the disease. Sepsis Event Note (ED) - Evaluation Sepsis Screening Result: No Definite Risk - Focused Exam Vital Signs: Vital Signs Temp Pulse Resp BP Pulse Ox 08/27/20 18:24 97 F 75 16 135/89 98 08/27/20 14:53 97.0 F 80 24 H 150/92 H 95 - My Orders Last 24 Hours: My Active Orders 08/27/20 15:33 Peripheral IV Care [RC] . DIRECTED Sodium Chloride 0.9% [Saline Flush] 10 ml FLUSH ASDIRECTED PRN Peripheral IV Insertion Adult [OM.PC] Routine 08/27/20 17:03 EPINEPHrine [Adrenalin] 0.3 mg IM ONETIME PRN Famotidine [Pepcid] 20 mg IVPUSH ONETIME PRN diphenhydrAMINE [Benadryl] 50 mg IVPUSH ONETIME PRN methylPREDNISolone Sod Succ [Solu-MEDROL] 125 mg IVPUSH ONETIME PRN 08/27/20 17:04 Vital Signs [RC] Q15M 08/27/20 17:15 Sodium Chloride 0.9% [Saline Flush] 30 ml FLUSH ASDIRECTED - Assessment/Plan Last 24 Hours: My Active Orders 08/27/20 15:33 Peripheral IV Care [RC] . DIRECTED Sodium Chloride 0.9% [Saline Flush] 10 ml FLUSH ASDIRECTED PRN Peripheral IV Insertion Adult [OM.PC] Routine 08/27/20 17:03 EPINEPHrine [Adrenalin] 0.3 mg IM ONETIME PRN Famotidine [Pepcid] 20 mg IVPUSH ONETIME PRN diphenhydrAMINE [Benadryl] 50 mg IVPUSH ONETIME PRN methylPREDNISolone Sod Succ [Solu-MEDROL] 125 mg IVPUSH ONETIME PRN 08/27/20 17:04 Vital Signs [RC] Q15M 08/27/20 17:15 Sodium Chloride 0.9% [Saline Flush] 30 ml FLUSH ASDIRECTED
[2020-08-27 16:53] LABS: CORONAVIRUS COVID-19 NAA POSITIVE (NEGATIVE)
[2020-08-27] MEDS ORDERED: Famotidine 20 MG/2 ML SDV IVPUSH PRN (17:03)
[2020-08-27] MEDS ORDERED: methylPREDNISolone Sodium Succinate 125 MG/2 ML SDV IVPUSH PRN (17:03)
[2020-08-27] MEDS ORDERED: EPINEPHrine 1 MG/ML SDV IM PRN (17:03)
[2020-08-27] MEDS ORDERED: diphenhydrAMINE 50 MG/ML SDV IVPUSH PRN (17:03)
[2020-08-27] MEDS ORDERED: Sodium Chloride 0.9% 10 ML Syringe FLUSH SCH (17:15)
--- NOTE | 2020-08-27 17:43 | CR ---
Chest: Portable view of the chest was obtained. Comparison: Prior chest x-ray of 12/26/14. Heart is enlarged. Patchy areas of increased density are noted within the left upper lung and right lower lung likely representing so-called COVID pneumonia. Previous cervical spine surgery is noted. Impression: 1. Findings compatible with COVID pneumonia as described above. Diagnostic code #3
[2020-08-27 20:28] VITALS: BP 112/81; PULSE 82
== END 2020-08-27 20:15 | disposition home or self-care (01) ==
LOC: JD.ED 13:56
DX: U07.1 COVID-19 (principal); E66.9 Obesity, unspecified; Z79.899 Other long term (current) drug therapy; Z88.8 Allergy status to other drugs, medicaments and biological substances; Z91.048 Other nonmedicinal substance allergy status
CPT/HCPCS: 0240U; 36415; 71045; 80053; 82728; 85025; 85379; 86140; 96374; 96375; 99285; J1200; J1885; J2765; J7030; J7050; M0239; Q0239; 99284